=== PATIENT | female | born 1960 | race American Indian/Alaskan Native ===

== ENCOUNTER 2017-05-11 13:19 | Observation (INO) | payer OTHER ==
[2017-05-11] MEDS ORDERED: NACL 0.45% 1000 ML 1,000 ML IV ONE (13:45)
[2017-05-11] MEDS ORDERED: NACL 0.45% 1000 ML 1,000 ML IV SCH (14:00)
[2017-05-11] MEDS ORDERED: ANCEF/STERILE WATER 2 GM/20 ML 2 GM/20 ML SYRINGE IV NR (14:00)
[2017-05-11 14:35] LABS: Basophils % (Auto) 0.9 % (0.0-1.8); Eosinophils % (Auto) 0.9 % (0.0-4.3); Hematocrit 37.4 % (30.3-42.9); Hemoglobin 12.4 gm/dl (10.1-14.3); Lymphocytes % (Auto) 40.9 % (13.4-35.0); Mean Corpuscular HGB Conc 33 % (30-34); Mean Corpuscular Hemoglobin 27 pg (28-32); Mean Corpuscular Volume 82 fl (79-97); Monocytes # (Auto) 0.5 K/mm3 (0.0-0.8); Monocytes % (Auto) 10.2 % (0.0-7.3); Platelet Count 339 K/mm3 (140-440); Red Blood Count 4.57 M/mm3 (3.65-5.03); Red Cell Distribution Width 15.3 % (13.2-15.2)
[2017-05-11] MEDS ORDERED: NACL 0.9% 1,000 ML, VANCOMYCIN VIAL 1,000 MG IR ONE (14:38)
[2017-05-11 14:54] LABS: Alanine Aminotransferase 39 units/L (7-56); Albumin 4.3 g/dL (3.9-5); BUN/Creatinine Ratio 17; Blood Urea Nitrogen 12 mg/dL (7-17); Calcium 9.2 mg/dL (8.4-10.2); Hemolysis Index 46
[2017-05-11 15:25] LABS: INR 0.93 (0.87-1.13); Partial Thromboplastin Time 25.9 Sec. (24.2-36.6)
[2017-05-11] MEDS ORDERED: DILAUDID ONE (18:33)
[2017-05-11] MEDS ORDERED: DIPRIVAN 10 MG/ML IV ONE ×2 (18:33)
[2017-05-11] MEDS ORDERED: VERSED IV ONE (18:34)
[2017-05-11] MEDS ORDERED: XYLOCAINE MPF 2% ONE (18:35)
[2017-05-11] MEDS ORDERED: NACL 0.9% 500 ML IR ONE (19:18)
[2017-05-11] MEDS ORDERED: XYLOCAINE 1% 20 mL ONE (19:18)
[2017-05-11] MEDS ORDERED: MARCAINE 0.5% 60 ML INFILTRATI ONE (19:18)
[2017-05-11] MEDS ORDERED: ANCEF/STERILE WATER 2 GM/20 ML 2 GM/20 ML SYRINGE IV ONE (19:19)
[2017-05-11] MEDS ORDERED: LOPRESSOR IV ONE (20:34)
--- NOTE | 2017-05-11 20:50 | Event Note ---
Date: 05/11/17 Pt underwent dual chamber PPM implant due to intermittent high grade AV block without apparent complications. Recommend: 1. Start low dose beta abelardo due to underlying sinus tachycardia and frequent atrial ectopy - prescribe at time of discharge. 2. OK to discharge tomorrow after PPM interrogation if stable. 3. Prescribe short course of pain medication at time of discharge. Cain Perez MD
[2017-05-11] MEDS ORDERED: ANCEF/NS 1 GM/50 ML 1 GM/50 ML BAG IV SCH (21:00)
--- NOTE | 2017-05-11 21:07 | Post Anesthesia Evaluation ---
- Post Anesthesia Evaluation Patient Participated: Yes Airway Patent: Yes Stable Respiratory Function: Yes Nausea/Vomiting: No Temp > 96.8F: Yes Pain Manageable: Yes Adequeate Hydration: Yes Anesthesia Complications: No Block Receding Appropriately: Not Applicable Patient on Ventilator: No
--- NOTE | 2017-05-11 21:08 | Anesthesia Consultation ---
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
--- NOTE | 2017-05-11 21:08 | Anesthesia Day of Surgery ---
Anesthesia Day of Surgery - Day of Surgery Patient Examined: Yes Patient H&P Reviewed: Yes Patient is NPO: Yes
[2017-05-11] MEDS: GLUCOPHAGE PO SCH (22:00)
[2017-05-11] MEDS: TORADOL IV PRN (22:20)
[2017-05-11] MEDS: TYLENOL PO PRN (22:32)
--- NOTE | 2017-05-12 01:36 | XRay Report ---
FINAL REPORT PROCEDURE: XR CHEST 1V AP TECHNIQUE: Chest radiograph anteroposterior view. CPT 99131 HISTORY: Pacemaker Postop COMPARISON: No prior studies are available for comparison. FINDINGS: Heart: Normal. Mediastinum/Vessels: Normal. Lungs/Pleural space: Lungs are clear and expanded. There are no infiltrates, effusions or pneumothoraces.. Bony thorax: No acute osseous abnormality. Life support devices: Pacemaker leads are in proper position.. IMPRESSION: No acute cardiopulmonary abnormality.
[2017-05-12] MEDS: ceFAZolin 1 GM in NACL 0.9% 20 ML IV SCH ×2 (02:31→12:09)
[2017-05-12] MEDS: TORADOL IV PRN (05:02)
--- NOTE | 2017-05-12 09:04 | Discharge Summary ---
Providers - Providers Date of Admission: 05/11/17 15:49 Date of discharge: 05/12/17 Attending physician: TITO PETIT Primary care physician: DIMPLE GILBERT Hospitalization Reason for admission: Elective pacemaker insertion Condition: Good Pertinent studies: CXR Procedures: Dual chamber PPM insertion Hospital course: Uneventful. PPM site intact - no hematoma Disposition: [id number]-01 TO HOME OR SELFCARE - Discharge Diagnoses (1) High degree atrioventricular block Status: Acute Core Measure Documentation - Palliative Care Palliative Care/ Comfort Measures: Not Applicable - Core Measures Any of the following diagnoses?: none Exam - Constitutional Vitals: Temp Pulse Resp BP Pulse Ox 98.0 F 79 18 133/77 97 05/12/17 04:25 05/12/17 04:33 05/12/17 04:25 05/12/17 04:25 05/12/17 04:33 General appearance: Present: no acute distress - EENT Eyes: Present: PERRL ENT: hearing intact - Neck Neck: Present: supple - Respiratory Respiratory effort: normal Respiratory: bilateral: CTA - Cardiovascular Rhythm: regular - Extremities Extremities: no ischemia Plan Activity: other (As instructed per pacemaker guidelines) Weight Bearing Status: Non-Weight Bearing Diet: low salt, diabetic Wound: keep clean and dry Follow up with: DIMPLE GILBERT MD, PHD [Primary Care Provider] - 7 Days Prescriptions: traMADol [Ultram 50 MG tab] 50 mg PO Q6HR PRN #30 tablet PRN Reason: Pain
[2017-05-12] MEDS ORDERED: K-DUR PO SCH (10:00)
[2017-05-12] MEDS ORDERED: DIOVAN PO SCH (10:00)
[2017-05-12] MEDS ORDERED: HYDROCHLOROTHIAZIDE PO SCH (10:00)
[2017-05-12] MEDS ORDERED: VALSARTAN PO SCH (10:00)
[2017-05-12] MEDS ORDERED: HCTZ PO SCH (10:00)
[2017-05-12] MEDS: GLUCOPHAGE PO SCH (10:50)
[2017-05-12 13:11] VITALS: BP 138/82
[2017-05-12] MEDS: TYLENOL PO PRN (14:40)
== END 2017-05-12 16:00 | disposition home or self-care (01) ==
LOC: CATHLABREC 13:19 → 4A 15:49 → INTOOBSV 15:49
PROVIDERS: ADMIT Internal Medicine Cardiovascular Disease; ATTEND Internal Medicine Cardiovascular Disease
DX: I44.30 Unspecified atrioventricular block (principal); I10 Essential (primary) hypertension; E11.9 Type 2 diabetes mellitus without complications
CPT/HCPCS: 33208; 36415; 71045; 80053; 82962; 85025; 85610; 85730; 93005; 93010; 96374; 96375; 96376; C1779; C1781; C1785; C1892; G0378; J0690; J1170; J1885; J2250; J2704; J3370

== ENCOUNTER 2018-09-11 19:18 | Emergency (ER) | payer OTHER ==
--- NOTE | 2018-09-11 19:36 | Event Note ---
ED Screening Note Date of service: 09/11/18 Time: 19:26 ED Screening Note: 57 y/o female comes in for rash and back pain for 3 days. This initial assessment/diagnostic orders/clinical plan/treatment(s) is/are subject to change based on patients health status, clinical progression and re-assessment by fellow clinical providers in the ED. Further treatment and workup at subsequent clinical providers discretion. Patient/guardian urged not to elope from the ED as their condition may be serious if not clinically assessed and managed. Initial orders include:
[2018-09-11] MEDS ORDERED: NORCO 7.5/325 PO ONE (20:11)
--- NOTE | 2018-09-11 20:16 | Emergency Department Report ---
- General Chief complaint: Skin Rash Stated complaint: RASH/WEAK IN BACK Time Seen by Provider: 09/11/18 19:34 Source: patient Mode of arrival: Ambulatory Limitations: No Limitations - History of Present Illness Initial comments: Pt is a 57 yo female who presents to the ED with c/o a rash under the right breast to the mid back that began two days ago. She states that the rash is painful. she denies any itching. she denies anyone else with the same rash. she has a fever. she has not taken anything for the fever. she has not had the shingles vaccine. - Related Data Home Medications Medication Instructions Recorded Confirmed Last Taken NIFEdipine XL [Procardia Xl] 60 mg PO QDAY 05/11/17 05/11/17 05/11/17 12:00 Valsartan/Hydrochlorothiazide 1 each PO QDAY 05/11/17 05/11/17 05/11/17 12:00 [Valsartan-Hctz 320-25 mg Tab] metFORMIN [Glucophage] 500 mg PO BID 05/11/17 05/11/17 05/10/17 Previous Rx's Medication Instructions Recorded Last Taken Type traMADol [Ultram 50 MG tab] 50 mg PO Q6HR PRN #30 tablet 05/12/17 Unknown Rx Potassium Chloride [K-Dur] 40 meq PO ONCE #2 tablet 04/17/18 Unknown Rx Acyclovir [Zovirax Tab] 800 mg PO 5XD 7 Days #35 tab 09/11/18 Unknown Rx HYDROcodone/ACETAMINOPHEN 1 each PO Q6HR PRN #10 tablet 09/11/18 Unknown Rx [Hydrocodone-Acetamin 5-300 mg] Allergies Allergy/AdvReac Type Severity Reaction Status Date / Time codeine AdvReac Unknown Verified 05/11/17 13:22 Abscess Boil HPI - HPI Chief Complaint: Skin Rash Stated Complaint: RASH/WEAK IN BACK Time Seen by Provider: 09/11/18 19:34 Home Medications: Home Medications Medication Instructions Recorded Confirmed Last Taken NIFEdipine XL [Procardia Xl] 60 mg PO QDAY 05/11/17 05/11/17 05/11/17 12:00 Valsartan/Hydrochlorothiazide 1 each PO QDAY 05/11/17 05/11/17 05/11/17 12:00 [Valsartan-Hctz 320-25 mg Tab] metFORMIN [Glucophage] 500 mg PO BID 05/11/17 05/11/17 05/10/17 Previous Rx's Medication Instructions Recorded Last Taken Type traMADol [Ultram 50 MG tab] 50 mg PO Q6HR PRN #30 tablet 05/12/17 Unknown Rx Potassium Chloride [K-Dur] 40 meq PO ONCE #2 tablet 04/17/18 Unknown Rx Acyclovir [Zovirax Tab] 800 mg PO 5XD 7 Days #35 tab 09/11/18 Unknown Rx HYDROcodone/ACETAMINOPHEN 1 each PO Q6HR PRN #10 tablet 09/11/18 Unknown Rx [Hydrocodone-Acetamin 5-300 mg] Allergies/Adverse Reactions: Allergies Allergy/AdvReac Type Severity Reaction Status Date / Time codeine AdvReac Unknown Verified 05/11/17 13:22 ED Review of Systems ROS: Stated complaint: RASH/WEAK IN BACK Other details as noted in HPI Comment: All other systems reviewed and negative ED Past Medical Hx - Past Medical History Previous Medical History?: Yes Hx Hypertension: Yes Hx Heart Attack/AMI: No Hx Congestive Heart Failure: No Hx Diabetes: Yes (oral medication) Hx Liver Disease: Yes (HEP C) Hx Seizures: No Hx Asthma: No Hx HIV: No Additional medical history: hep c, arrhythmia - Surgical History Past Surgical History?: Yes Hx Pacemaker: Yes Additional Surgical History: - Social History Smoking Status: Never Smoker - Medications Home Medications: Home Medications Medication Instructions Recorded Confirmed Last Taken Type NIFEdipine XL [Procardia Xl] 60 mg PO QDAY 05/11/17 05/11/17 05/11/17 12:00 History Valsartan/Hydrochlorothiazide 1 each PO QDAY 05/11/17 05/11/17 05/11/17 12:00 History [Valsartan-Hctz 320-25 mg Tab] metFORMIN [Glucophage] 500 mg PO BID 05/11/17 05/11/17 05/10/17 History traMADol [Ultram 50 MG tab] 50 mg PO Q6HR PRN #30 tablet 05/12/17 Unknown Rx Potassium Chloride [K-Dur] 40 meq PO ONCE #2 tablet 04/17/18 Unknown Rx Acyclovir [Zovirax Tab] 800 mg PO 5XD 7 Days #35 tab 09/11/18 Unknown Rx HYDROcodone/ACETAMINOPHEN 1 each PO Q6HR PRN #10 tablet 09/11/18 Unknown Rx [Hydrocodone-Acetamin 5-300 mg] ED Physical Exam - General Limitations: No Limitations General appearance: alert, in no apparent distress - Head Head exam: Present: atraumatic, normocephalic - Eye Eye exam: Present: normal appearance, PERRL - ENT ENT exam: Present: mucous membranes moist - Respiratory Respiratory exam: Absent: respiratory distress - Neurological Exam Neurological exam: Present: alert, oriented X3 - Psychiatric Psychiatric exam: Present: normal affect, normal mood - Skin Skin exam: Present: warm, dry, other (small vesicles present under the right breast that wrap in around to the right middle back, does not cross midline, no scaling, no drainage) ED Course Vital Signs 09/11/18 09/11/18 19:26 20:31 Temperature 100.8 F H 102.6 F H Pulse Rate 115 H 94 H Respiratory 18 18 Rate Blood Pressure 148/79 137/78 O2 Sat by Pulse 98 99 Oximetry ED Medical Decision Making - Medical Decision Making Pt is a 57 yo female who presents to the ED with c/o a rash under the right breast to the mid back that began two days ago. She states that the rash is painful. she denies any itching. she denies anyone else with the same rash. she has a fever. she has not taken anything for the fever. she has not had the shingles vaccine. examination consistent with herpes zoster. pt given hydrocodone with acetaminophen for pain relief and anti-pyretic. pt given prescription for acyclovir and pain medication. discussed to take medication as prescribed. do not drive or operate heavy machinery while taking pain medication. follow up with your primary care doctor in the next 2-3 days and also discuss shingles vaccine. return to the emergency room for any new or worsening symptoms. Critical care attestation.: If time is entered above; I have spent that time in minutes in the direct care of this critically ill patient, excluding procedure time. ED Disposition Clinical Impression: Shingles Qualifiers: Herpes zoster complications: without complications Qualified Code(s): B02.9 - Zoster without complications Disposition: - TO HOME OR SELFCARE Is pt being admited?: No Does the pt Need Aspirin: No Condition: Stable Instructions: Herpes Zoster (ED) Additional Instructions: please take all medication as prescribed. do not drive or operate heavy machinery while taking pain medication. follow up with your primary care doctor in the next 2-3 days and also discuss shingles vaccine. return to the emergency room for any new or worsening symptoms. Prescriptions: HYDROcodone/ACETAMINOPHEN [Hydrocodone-Acetamin 5-300 mg] 1 each PO Q6HR PRN #10 tablet PRN Reason: Pain , Severe (7-10) Acyclovir [Zovirax Tab] 800 mg PO 5XD 7 Days #35 tab Referrals: BRANDI BROWN MD [Primary Care Provider] - 2-3 Days Forms: Work/School Release Form(ED) Time of Disposition: 20:14 Print Language: SWISS
[2018-09-11 20:44] VITALS: BP 137/78
== END 2018-09-11 20:43 | disposition home or self-care (01) ==
LOC: ED 19:18
DX: B02.9 Zoster without complications (principal); I10 Essential (primary) hypertension; E11.9 Type 2 diabetes mellitus without complications; Z79.84 Long term (current) use of oral hypoglycemic drugs; Z86.19 Personal history of other infectious and parasitic diseases; Z95.0 Presence of cardiac pacemaker; Z88.5 Allergy status to narcotic agent; Z79.899 Other long term (current) drug therapy
CPT/HCPCS: 99282